=== PATIENT | male | born 1945 | race Caucasian/White ===

== ENCOUNTER → 2016-10-12 | Outpatient (CLI) | payer MEDICARE, OTHER ==
[2016-10-12 15:59] LABS: Blood Urea Nitrogen 25 mg/dL (9-20); Non-African American GFR(MDRD) 57 (>60 ml/min/1.73 sqM)
--- NOTE | 2016-10-12 18:24 | CT ---
EXAMINATION TYPE: CT urogram wo/w con DATE OF EXAM: 10/12/2016 5:43 PM COMPARISON: NONE HISTORY: hematuria CT DLP: 1069.1 mGycm Automated exposure control for dose reduction was used. CONTRAST: Performed with IV Contrast, patient injected with 80 mL of Visipaque 320. FINDINGS: There is mild pleural thickening and linear density at the left lung base consistent with scarring. T here is no pleural effusion. There is a small hiatal hernia. There is no pericardial effusion. The liver spleen pancreas gallbladder appear normal. Bile ducts are not dilated. Noncontrast images s how no renal calculi. There is no hydronephrosis. Kidneys have normal size and contour. There is no s ign of a renal mass. There is normal appearance of the ureters. Bladder distends smoothly. There is n o evidence of a pelvic mass. Prostate is large and measures 5 cm. I see no intestinal wall thickening there are no dilated loops. Appendix appears normal. There is no retroperitoneal adenopathy. There i s no ascites. There is no evidence of a pelvic mass. I see no bony destructive process. IMPRESSION: MILD PULMONARY AND PLEURAL SCARRING AT THE LEFT LUNG BASE. SMALL HIATAL HERNIA. NO ABNORMALITY SEEN O F THE KIDNEYS URETERS AND URINARY BLADDER. ENLARGED PROSTATE. I DO NOT SEE A CAUSE FOR THE HEMATURIA.
== END | disposition home or self-care (01) ==
LOC: RADCTMAIN 15:12
PROVIDERS: ATTEND Internal Medicine
DX: N40.0 Benign prostatic hyperplasia without lower urinary tract symptoms (principal)
CPT/HCPCS: 82565; 84520; 74178; 36415; 74400; Q9967

== ENCOUNTER → 2016-10-26 | Outpatient (CLI) | payer MEDICARE, OTHER ==
[2016-10-19 09:44] VITALS: BMI 25.7
[2016-10-26 14:03] VITALS: BP 144/86; PULSE 62; RESP 16; TEMP 98.5
--- NOTE | 2016-10-27 09:03 | P.CONS ---
History of Present Illness - Reason for Consult Consult date: 10/26/16 - History of Present Illness This is an initial consultation visit for this 70 years old male, with a chronic history of significant low back pain, he reported that he had this pain for several years, the intensity of the pain increased over the last 6 months, denies any initiating event and he reports that the pain, is constant and increases with any activity. Intensity of the pain , intensity of the pain , varies between 4/ 10 increased with activity to 7-8/10, he denies any motor or sensory deficits, he denies any fever or night sweats,, he never tried interventional pain management, he never had any surgery on his back Past Medical History Past Medical History: Blood Disorder, Cancer, GERD/Reflux, Hyperlipidemia, Osteoarthritis (OA), Pulmonary Embolus (PE) Additional Past Medical History / Comment(s): LEIDEN FACTOR 5, HX OF PE'S (2003) , CANCER ON EAR REMOVED. History of Any Multi-Drug Resistant Organisms: None Reported Past Surgical History: Orthopedic Surgery Additional Past Surgical History / Comment(s): LEFT ANKLE WITH HARDWARE(1998), RHINOPLASTY, COLONOSCOPY Past Anesthesia/Blood Transfusion Reactions: No Reported Reaction Past Psychological History: No Psychological Hx Reported Smoking Status: Current every day smoker Past Alcohol Use History: Rare Additional Past Alcohol Use History / Comment(s): SMOKES 1/2 PPD, HAS SMOKED FOR 54 YEARS. Past Drug Use History: None Reported - Past Family History Brother(s) Family Medical History: Cancer Additional Family Medical History / Comment(s): TWIN BROTHER HAD COLON CANCER. Medications and Allergies Home Medications Medication Instructions Recorded Confirmed Type Allopurinol [Zyloprim] 100 mg PO HS 11/25/15 10/26/16 History Atorvastatin [Lipitor] 20 mg PO HS 11/25/15 10/26/16 History Cholecalciferol [Vitamin D3] 1,000 unit PO HS 11/25/15 10/26/16 History Fondaparinux Sodium [Arixtra] 2.5 mg SQ DAILY 11/25/15 10/26/16 History Omeprazole [PriLOSEC] 20 mg PO HS 11/25/15 10/26/16 History Fenofibrate 145 mg PO HS 10/19/16 10/26/16 History Allergies Allergy/AdvReac Type Severity Reaction Status Date / Time warfarin sodium Allergy Severe Unknown Verified 10/26/16 13:46 [From Coumadin] niacin AdvReac Unknown AFFECTED Verified 10/26/16 13:46 LIVER Physical Exam Vitals: Vital Signs Temp Pulse Resp BP 10/26/16 13:49 98.5 F 62 16 144/86 Social history : smoker , NO ETOH , NO Illegal drugs use Review of Systems : 1- Constitutional : no chills , no fever , no night sweats , 2- Ears : no ear discharge , no change in hearing 3-Nose, Mouth ,Throat ; no bleeding gums, no sore throat , no epistaxis , 4-Cardiovascular : Denies chest pain, , no orthopnea , no palpitation ,( history of pulmonary embolism) 5-Respiratory : Denies cough , no dyspnea , no hemoptysis 6-Gastrointestinal :, no change in bowel habits , no coffee- ground emesis . 7-Genitourinary : No hematuria , no discharge , no incontinence, 8-Musculoskeletal : No gait dysfunction , report low back pain , 9- Neurological : no ataxia , no tremor , no sezure , 10-Psychatric , no suicidal ideation no hallucination 11- Endocrine : no cold intolerence , no polyuria , no polydypsia , 12-Hematologic : History of pulmonary embolism(factor V Leiden deficiency) 13-Allergic / immunology : no angioedema , no wheezing ,no allergic rhinitis 14-Integumentary : no brttle nails , no change hair / nails , no foot/leg ulcers . Physical Examinations : 1-Constitutional : Cooperative , not in acute distress . 2-HEENT : nech ; supple , no Lymphadenopathy , no Thyromegaly , :eyes , no icterus, no photophobia . ENT : , normal oropharynx , no Thrush 3- Respiratory : Chest clear to auscultations Bilaterally , no wheezing . 4- Cardiovascular : regular rate and rhythem , S1 , S2 , no S3 , no S4. 5- Gastrointestinal: abdomen soft no tenderness , no organomegally . 6- Genitourinary : Defferred . 7-Integumentary : No cellulitis , no ulcers , normal skin turgor , no cyanotic . 8- neurologic : Cranial nerve II to XII intact , no focal neurological deffecit 9-psychatric : alert , oriented X 3 , appropriate affect , intact judgment and insight . 10-Lymphatic : no Lymphadenopathy. 11- musculoskeltal: normal gait , exams of the cervical spine = motor stregnth in the deltoid and biceps, normal right side , normal Left side exams of the Lumber spine = moter stegnth lower extremities , thigh and legs 5/5 Right side , 5/5 Left side deep tendon reflexes : normal Knee Jerk , normal ankle Jerk positive lumber facet Loading Test Range of motion of the lumbar spine Flexion 30 degrees, extension 10 degrees strait leg raising test negative bilaterally Fabere test negative bilaterally. Results Comments: MRI of the lumbar spine done 08/07/2016= multilevel lumbar facet arthropathy L1-2 /L2-3/L4 5, and L5-S1 disc herniation Assessment and Plan Plan: Assessment and plan = - Chronic low back pain secondary to lumbar herniated disc disease , lumbar spondylosis with facet arthropathy without myelopathy , - diagnoses, prognosis, and treatment options including but not limited to physical therapy, surgical interventions, interventional therapies and medication management including narcotics and adjuvant medication were discussed with the patient and all questions answered to the patient's satisfaction. -procedure= patient will be scheduled to have lumbar epidural steroid injection at L5-S1 levels, and we will do the procedure twice and we evaluate patient's response to the injection, and if he continued to have pain after the epidural steroid injection, and we will consider doing diagnostic medial branch block lumbar area, and later on we can consider doing radiofrequency ablation of the medial branch, Patient has to stop Arixtra 48 hours before the procedure Time with Patient: Greater than 30
== END | disposition home or self-care (01) ==
LOC: PNWHC3 13:28
PROVIDERS: ATTEND Specialist
DX: M51.26 Other intervertebral disc displacement, lumbar region (principal); M47.816 Spondylosis without myelopathy or radiculopathy, lumbar region; M46.96 Unspecified inflammatory spondylopathy, lumbar region; K21.9 Gastro-esophageal reflux disease without esophagitis; E78.5 Hyperlipidemia, unspecified; M19.90 Unspecified osteoarthritis, unspecified site; Z86.711 Personal history of pulmonary embolism; Z79.01 Long term (current) use of anticoagulants; F17.200 Nicotine dependence, unspecified, uncomplicated; Z79.899 Other long term (current) drug therapy; Z88.8 Allergy status to other drugs, medicaments and biological substances; D68.2 Hereditary deficiency of other clotting factors
CPT/HCPCS: 99211

== ENCOUNTER → 2016-11-12 | Day surgery (SDC) | payer MEDICARE, OTHER ==
[~2016-11-12] MED LIST: LIDOCAINE 1% 20 ML VIAL (10MG/ML) FOR IV START INTRADERMA ONE
[2016-11-12 12:03] VITALS: BP 158/83; PULSE 73; RESP 18; TEMP 97.6
[2016-11-12] MEDS: LACTATED RINGERS 1,000 ML IV SCH ×2 (12:03→12:38)
--- NOTE | 2016-11-12 14:20 | P.PN ---
Progress Note - Text Patient seen in preoperative holding area, presents for lumbar epidural steroid injection today. Patient has a long history of pulmonary embolism secondary , and has had multiple emboli and hospital admissions for this problem. Due to his Coumadin allergy, he has been on Arixtra (fondaparinux) for an extended period of time. He was instructed by our staff to be off the Arixtra for 48 hours prior to epidural injection, but today relates a history that his previous hematologists in [place] specifically instructed him that he should never stop his anticoagulation or that he could . He last took the Arixtra at 10 PM (2200) on 11/10/16, and thus he has only been off this anticoagulant for approximately 30 -33 hours. Review of the PAO anticoagulation guidelines demonstrates that current recommendations for fondaparinux should be stopped for 3-4 days (five half-lives ) to reduce risk of hematoma. We will be unable to do this procedure today because of this. The patient noted that he wished to stay off his Arixtra for the epidural injection to be done Wednesday, which was the time for which he was rescheduled. I informed him that, since he uses Arixtra at night, in order to have three full days' worth of recoagulation, he would have to have his last dose night. I also informed him of the risks of staying off anticoagulation, specifically that he could be at increased odds of having another pulmonary embolus, and the patient said that his pain was so severe that he had to have something done, and he said he preferred to take this risk and have the epidural injection performed on Wednesday. He fully understands all relevant risks, benefits, and alternatives to the epidural steroid injection ( including bleeding, infection, nerve damage, incomplete pain relief, and allergies), and he will return for the procedure as scheduled.
== END ==
LOC: ORPAIN 11:21
PROVIDERS: ATTEND Anesthesiology
DX: G89.29 Other chronic pain (principal); M51.26 Other intervertebral disc displacement, lumbar region; M47.816 Spondylosis without myelopathy or radiculopathy, lumbar region; M46.96 Unspecified inflammatory spondylopathy, lumbar region; Z53.8 Procedure and treatment not carried out for other reasons; Z86.711 Personal history of pulmonary embolism; Z79.01 Long term (current) use of anticoagulants; K21.9 Gastro-esophageal reflux disease without esophagitis; E78.5 Hyperlipidemia, unspecified; F17.200 Nicotine dependence, unspecified, uncomplicated; Z79.899 Other long term (current) drug therapy; Z88.8 Allergy status to other drugs, medicaments and biological substances

== ENCOUNTER 2016-11-16 08:00 | Day surgery (SDC) | payer MEDICARE, OTHER ==
[2016-11-13 08:51] VITALS: BMI 25.1
[2016-11-16] MEDS ORDERED: LACTATED RINGERS 1,000 ML IV ONE (08:15)
[2016-11-16 08:36] VITALS: PULSE 59; TEMP 98.3
[2016-11-16] MEDS ORDERED: LIDOCAINE 1% 20 ML VIAL (10MG/ML) FOR IV START INTRADERMA ONE (08:48)
[2016-11-16] MEDS ORDERED: TRIAMCINOLONE ACETONIDE 40 MG/ML 1 ML VIAL ONE (09:49)
[2016-11-16] MEDS ORDERED: MIDAZOLAM 2 MG/2 ML VIAL ONE (09:49)
[2016-11-16] MEDS ORDERED: IOHEXOL 180 MG/ML 1 ML ML ONE (09:49)
[2016-11-16] MEDS ORDERED: fentaNYL (PF) 50 MCG/ML 2 ML AMP ONE (09:49)
--- NOTE | 2016-11-16 10:14 | P.PCN ---
Date of Procedure: 11/16/16 Procedure(s) Performed: PREOPERATIVE DIAGNOSIS: 1- Lumbar Degenerative Disc Diseases 2-Lumbar spondylosis with Facet arthropathy without myelopathy. 3-lumbar herniated disc disease. POSTOPERATIVE DIAGNOSIS: 1-Lumber Degenerative Disc Diseases 2-Lumbar spondylosis with Facet arthropathy without myelopathy. 3-lumbar herniated disc disease. PROCEDURE 1. Lumbar epidural steroid injection under fluoroscopic guidance at the L5-S1 level. 2. Lumbar epidurogram. ANESTHESIA: Local with 1% lidocaine 3 ml and IV sedation with Versed 1 mg , and fentanyle 50 Mcg EBL: Minimal PROCEDURE INDICATION: The patient with low back pain and radiculitis symptoms unresponsive to conservative treatment. Fluoroscopy was used to optimize visualization of the needle placement and to maximize safety. PROCEDURE DESCRIPTION / TECHNIQUE: The patient was seen and identified in the preoperative area. Risks, benefits , complications including but not limited to infections ,bleeding ,allergic reaction to the medications ,nerve damage and not complete pain releife , and alternatives were discussed with the patient. The patient agreed to proceed with the procedure and signed the consent. IV was started, and vital signs were stable. Patient was taken to the OR and time out was completed. The patient was placed in the prone position on procedure table and a pillow was placed under the abdomen to reduce lumbar lordosis. The lumbosacral area was prepped and draped in the usual sterile fashion.ere closely monitored during the procedure. Conscious sedation was used during the procedure to decrease patients anxiety. Vital signs was monitered during the entire procedure. Using anterior-posterior fluoroscopy, the L5-S1 interlaminar space was identified and the skin over this site was marked and then infiltrated with 1% lidocaine subcutaneously. Subsequently, a 20-gauge Tuohy epidural needle was inserted and advanced toward the epidural space using the ``Loss of resistance technique and guided by AP and lateral fluoroscopy. The correct needle position in the epidural space was verified with the injection of 2 mL of the water soluble contrast dye Omnipaque 180 contrast and observing an excellent epidurogram with the epidural spread of the dye, after negative aspiration for blood and CSF and in the absence of paresthesias. Again after negative aspiration, a 6 ml mixture containing 80 mg of Kenalog and 2 ml of preservative free Normal Saline, and 2 ml of preservative free lidocaine 1% solution was injected and a washout of epidurogram was seen. Needle was withdrawn intact, skin was cleansed, and bandages were applied. COMPLICATIONS: None DISPOSITION / PLANS: The patient was placed in a supine position and transferred to the recovery area in a stable condition for observation. There was no evidence of lower extremity motor or sensory deficit after the procedure. Patient was discharged from the recovery room after meeting discharge criteria. Home discharge instructions were given to the patient by the staff. The patient was reexamined prior to discharge. The patient will schedule a follow up in the clinic in 2-4 weeks.
[2016-11-16] MEDS ORDERED: IV FLUID CONTINUATION 1,000 ML IV ONE (10:19)
--- NOTE | 2016-11-16 10:20 | FL ---
Fluoroscopy HISTORY: Pain 2 seconds fluoroscopy time supplied to the referring clinician. 1 intraoperative C-arm images docume nt the procedure. See dictated report from anesthesia.
[2016-11-16 10:24] VITALS: RESP 18
[2016-11-16 10:45] VITALS: BP 110/74
== END 2016-11-16 10:52 | disposition home or self-care (01) ==
LOC: ORPAIN 08:00
PROVIDERS: ATTEND Specialist
DX: M51.36 Other intervertebral disc degeneration, lumbar region (principal); M47.816 Spondylosis without myelopathy or radiculopathy, lumbar region; M46.96 Unspecified inflammatory spondylopathy, lumbar region; M51.26 Other intervertebral disc displacement, lumbar region
CPT/HCPCS: 62323; 99152; J2250; J3301; Q9965; J3010

== ENCOUNTER 2016-12-17 11:27 | Day surgery (SDC) | payer MEDICARE, OTHER ==
[2016-12-16 10:11] VITALS: BMI 24.4
[~2016-12-17 11:27] MED LIST changes: +LACTATED RINGERS 1,000 ML IV SCH; -LIDOCAINE 1% 20 ML VIAL (10MG/ML) FOR IV START INTRADERMA ONE
[2016-12-17 12:26] VITALS: RESP 18; TEMP 97.9
[2016-12-17] MEDS ORDERED: LIDOCAINE 1% 20 ML VIAL (10MG/ML) FOR IV START INTRADERMA ONE (12:31)
[2016-12-17] MEDS ORDERED: IOHEXOL 180 MG/ML 1 ML ML ONE (13:33)
[2016-12-17] MEDS ORDERED: MIDAZOLAM 2 MG/2 ML VIAL ONE (13:33)
[2016-12-17] MEDS ORDERED: TRIAMCINOLONE ACETONIDE 40 MG/ML 1 ML VIAL ONE (13:33)
[2016-12-17] MEDS ORDERED: fentaNYL (PF) 50 MCG/ML 2 ML AMP ONE (13:33)
--- NOTE | 2016-12-17 13:48 | P.PCN ---
Date of Procedure: 12/17/16 Procedure(s) Performed: PREOPERATIVE DIAGNOSIS: 1- Lumbar Degenerative Disc Diseases 2-Lumbar spondylosis with Facet arthropathy without myelopathy 3-lumbar herniated disc disease POSTOPERATIVE DIAGNOSIS: 1-Lumber Degenerative Disc Diseases 2-Lumbar spondylosis with Facet arthropathy without myelopathy. 3-lumbar herniated disc disease PROCEDURE 1. Lumbar epidural steroid injection under fluoroscopic guidance at the L5-S1 level. 2. Lumbar epidurogram. ANESTHESIA: Local with 1% lidocaine 3 ml and IV sedation with Versed 1 mg , and fentanyle 50 Mcg EBL: Minimal PROCEDURE INDICATION: The patient with low back pain and radiculitis symptoms unresponsive to conservative treatment. Fluoroscopy was used to optimize visualization of the needle placement and to maximize safety. PROCEDURE DESCRIPTION / TECHNIQUE: The patient was seen and identified in the preoperative area. Risks, benefits , complications including but not limited to infections ,bleeding ,allergic reaction to the medications ,nerve damage and not complete pain releife , and alternatives were discussed with the patient. The patient agreed to proceed with the procedure and signed the consent. IV was started, and vital signs were stable. Patient was taken to the OR and time out was completed. The patient was placed in the prone position on procedure table and a pillow was placed under the abdomen to reduce lumbar lordosis. The lumbosacral area was prepped and draped in the usual sterile fashion.ere closely monitored during the procedure. Conscious sedation was used during the procedure to decrease patients anxiety. Vital signs was monitered during the entire procedure. Using anterior-posterior fluoroscopy, the L5-S1 interlaminar space was identified and the skin over this site was marked and then infiltrated with 1% lidocaine subcutaneously. Subsequently, a 20-gauge Tuohy epidural needle was inserted and advanced toward the epidural space using the ``Loss of resistance technique and guided by AP and lateral fluoroscopy. The correct needle position in the epidural space was verified with the injection of 2 mL of the water soluble contrast dye Omnipaque 180 contrast and observing an excellent epidurogram with the epidural spread of the dye, after negative aspiration for blood and CSF and in the absence of paresthesias. Again after negative aspiration, a 6 ml mixture containing 80 mg of Kenalog and 2 ml of preservative free Normal Saline, and 2 ml of preservative free lidocaine 1% solution was injected and a washout of epidurogram was seen. Needle was withdrawn intact, skin was cleansed, and bandages were applied. COMPLICATIONS: None DISPOSITION / PLANS: The patient was placed in a supine position and transferred to the recovery area in a stable condition for observation. There was no evidence of lower extremity motor or sensory deficit after the procedure. Patient was discharged from the recovery room after meeting discharge criteria. Home discharge instructions were given to the patient by the staff. The patient was reexamined prior to discharge. The patient will schedule a follow up in the clinic in 2-4 weeks.
[2016-12-17] MEDS ORDERED: IV FLUID CONTINUATION 1,000 ML IV ONE (13:54)
--- NOTE | 2016-12-17 14:17 | FL ---
EXAMINATION TYPE: FL guided pain mgmt statistic DATE OF EXAM: 12/17/2016 1:51 PM HISTORY: Pain LESI, 2sec fl time
[2016-12-17 14:21] VITALS: BP 146/81; PULSE 59
== END 2016-12-17 14:35 | disposition home or self-care (01) ==
LOC: ORPAIN 11:27
PROVIDERS: ATTEND Specialist
DX: M51.16 Intervertebral disc disorders with radiculopathy, lumbar region (principal); M46.96 Unspecified inflammatory spondylopathy, lumbar region; M47.26 Other spondylosis with radiculopathy, lumbar region; M51.26 Other intervertebral disc displacement, lumbar region; Z88.8 Allergy status to other drugs, medicaments and biological substances
CPT/HCPCS: 62323; J2250; J3301; Q9965; J3010

== ENCOUNTER → 2017-05-24 | Outpatient (CLI) | payer MEDICARE, OTHER ==
[2017-05-24 11:17] VITALS: BP 141/74; PULSE 76; RESP 16
--- NOTE | 2017-05-24 11:40 | P.PN ---
Progress Note - Text This is a 71-year-old male with history of right lower back pain. The patient denies any radiation of his pain to the lower extremities at this point however he feels some tingling from his knees down bilaterally for the last 3-4 days as she states. By physical exam he is alert oriented 3 no apparent distress he has some tenderness in the right lower back area and with extension of the back. Neuro exam of the lower extremities showed normal muscle strength and normal and symmetrical deep tendon reflexes. The patient denies any bowel or bladder dysfunction however this pain sometimes wakes him up at night. The patient does not take any medication for his pain. He is on Arixtra due to history of multiple PEs. Given the patient axial lower back pain and mostly on the right side of his lower back I will schedule him to have the diagnostic lumbar medial branch block for the L4 5 and L5-S1 joints. I asked him to hold his Arixtra for only 48 hours. The patient questions were answered to his satisfaction.
== END | disposition home or self-care (01) ==
LOC: PNWHC3 10:57
DX: M54.5 Low back pain (principal)
CPT/HCPCS: 99211

== ENCOUNTER 2017-07-06 08:18 | Day surgery (SDC) | payer MEDICARE, OTHER ==
[2017-07-05 08:55] VITALS: BMI 25.1
[2017-07-06 08:33] VITALS: RESP 16; TEMP 97
[2017-07-06] MEDS ORDERED: LIDOCAINE 1% 20 ML VIAL (10MG/ML) FOR IV START INTRADERMA ONE (08:35)
--- NOTE | 2017-07-06 09:58 | P.PCN ---
Date of Procedure: 07/06/17 Procedure(s) Performed: PREOPERATIVE DIAGNOSIS : 1- Lumbar spondylosis with Facet Arthropathy without myelopathy . 2- Lumber degenerative disc disease POSTOPERATIVE DIAGNOSIS: 1- Lumbar spondylosis with Facet Arthropathy without myelopathy . 2- Lumber degenerative disc disease PROCEDURE: Diagnostic bilateral L4 -5 , and L5-S1 medial branch block under fluoroscopy ANESTHESIA: Local with 1% lidocaine 4 ml ; IV sedation with Versed 2 mg EBL: Minimal COMPLICATION: None. IV FLUIDS: 100 mL of normal saline. PROCEDURE INDICATION: Chronic low back pain secondary to Facet arthropathy unresponsive to conservative treatment. PROCEDURE DESCRIPTION: the patient was seen and identified in the preop holding area , risks and benefits and possible complications of the procedure and alternative were discussed with the patient, and the patient agreed to proceed with the procedure and signed the consent , IV was started and vital signs monitored during the procedure and fluoroscopy was used to maximize the benefit and accuracy of the needle placement, and sedation was given to decrease patient anxiety, patient was taken to the procedure room and placed in prone position vital signs monitored in the back prepped with chlorhexidine X3 then under strict sterile technique using a right oblique fluoroscopy ,the junction of the transverse process and the superior articulating process of the right , L4- 5, and L5-S1 vertebra which corresponding to the fluoroscopy image of the eye of the Walt dog on the block side for the medial branches and subsequently , after local infiltration of skin and subcu tissuies with lidocaine 1% one mL at each level ,then 22-gauge Quincke-type needles , 2 needle was used , each one of them placed at the junction of the base of the transverse process and the superior articular process at the appropriate level, and the needle was advanced until the periosteum contacted, needle placement confirmed with AP oblique and lateral view and after appropriate needle placement confirmed, and after negative aspiration for heme and CSF and there was no paresthesia ,1 mL of Marcaine 0.5% mixed with 20 mg Kenalog , then half mL injected at each level after negative aspiration the needle subsequently removed and the same procedure repeated for the left side at left side at L4- 5 and L5-S1 levels. At the end of the procedure and the needles removed and a bandage applied after the skin was cleaned the cleaning solution patient taken to recovery room in stable condition and monitors in the recovery room for 20-30 minutes and discharged home in stable condition after discharge criteria met and patient will follow up with the pain clinic in 2-4 weeks
[2017-07-06] MEDS ORDERED: IV FLUID CONTINUATION 775 ML IV ONE (10:03)
--- NOTE | 2017-07-06 10:09 | FL ---
EXAMINATION TYPE: FL guided pain mgmt statistic DATE OF EXAM: 07/06/2017 HISTORY: Flouroscopy time 6 seconds of fluoroscopy provided. IMPRESSION: 1. Fluoroscopy time.
[2017-07-06 10:32] VITALS: BP 112/63; PULSE 57
--- NOTE | 2017-07-14 15:34 | CDI ---
Dear Dr. Lawson, In order to properly code and bill for this encounter, we need to know the type of sedation that was used during the procedure. Your procedure note only says "sedation" with no additional information. The Anesthesia Plan on the Procedure Record doesn't have anything checked. Was the anesthesia Moderate Conscious Sedation, or other form? Please respond via an addendum on the encounter. Thanks ! SIGIFREDO Luna
--- NOTE | 2017-07-22 14:35 | P.PN ---
Progress Note - Text Progress Note Date: 07/22/17 This is an addendum to the note done 07/06/2017, the procedure was diagnostic medial branch block lumbar area and patient had Versed 2 mg for the sedation during the procedure ,the patient had moderate sedation.
== END 2017-07-06 10:46 | disposition home or self-care (01) ==
LOC: ORPAIN 08:18
PROVIDERS: ATTEND Specialist
DX: G89.29 Other chronic pain (principal); M43.06 Spondylolysis, lumbar region; M47.816 Spondylosis without myelopathy or radiculopathy, lumbar region; M46.96 Unspecified inflammatory spondylopathy, lumbar region; M51.36 Other intervertebral disc degeneration, lumbar region; K21.9 Gastro-esophageal reflux disease without esophagitis; Z86.718 Personal history of other venous thrombosis and embolism; Z88.8 Allergy status to other drugs, medicaments and biological substances
CPT/HCPCS: 64493; 64494; J2250; J3301; 99152

== ENCOUNTER → 2017-09-13 | Outpatient (CLI) | payer MEDICARE, OTHER ==
[2017-09-13 13:29] VITALS: BP 139/72; PULSE 86; RESP 16; TEMP 98.1
--- NOTE | 2017-09-13 13:47 | P.PN ---
Progress Note - Text Progress Note Date: 09/13/17 Patient returns for followup for chronic back pain with radiation to legs. Patient recently underwent R lumbar RFA, which has provided relief for only 2-3 days' interval. Patient continues on no opioid medications for pain, but has overall done well with procedures. Patient denies adverse drug effects from medications. Today, pt denies new-onset weakness, bowel/bladder incontinence, or any other signs or symptoms of cauda equina syndrome. There are no signs of acute intoxication, and no indications of medication diversion or overuse. In addition to above, 13-point review of systems is also negative for chest pain , shortness of breath, changes in vision, changes in hearing, new onset weakness , abdominal pain, diarrhea, extreme fatigue, malaise, fever, skin changes, homicidal or suicidal ideation, or bowel or bladder incontinence. Vital Signs: Reviewed in EMR Gen: WDWN, AAOx3, NAD HEENT: NCAT, EOMI, hearing grossly normal Pulm: resp unlabored Abd: soft, NT, ND Neck: supple, trachea midline ROM in flexion lumbar spine: reduced ROM in extension lumbar spine: reduced Lumbar paravertebral tenderness: + Facet loading: + bilateral, L > R SI joint tenderness: + L > R Murray's test: neg Straight leg raise: neg Neuro: CN II-XII grossly intact, muscle strength lower extremities PRESERVED Imaging: Reviewed in EMR Assessment: 1. lumbar spondylosis 2. lumbar radiculitis 3. chronic pain syndrome Plan: 1. Explanation: Opioid and psychological risk scores were reviewed. Diagnoses , prognoses, and multiple treatment options including but not limited to physical therapy, interventional therapies, adjuvant medical therapies, narcotic medication therapies, and surgery were discussed with the patient and all questions were answered to the patient's satisfaction. 2. Opioid agreement: no opioids prescribed today 3. Counseling: The patient was counseled extensively on SMOKING CESSATION, BODY MASS INDEX, EXERCISE. Specifically, the patient was instructed regarding the importance of smoking cessation, weight control, and exercise in the context of both chronic pain and overall health. 4. Procedures: LESI series (consider Depo-Medrol as patient did have high percentage of relief when done with Decadron) 5. Consultations: None 6. Investigations: None 7. Medications: none prescribed 8. Disposition: f/u for procedure as scheduled PQRS measures: 1-Patient's medications are documented in the chart. 2-Tobacco use is negative 3-Patient has not had a pneumococcal vaccine. 4-Advanced care planning discussed, patient unable to give. 5-Opioid contract NOT signed with the patient. 6-Pain positive, follow-up visit or procedure scheduled 7-Patient's blood pressure measured and documented, and patient will follow up with the primary care due to hypertension. 8-Patient's weight was measured, and body mass index ABOVE the normal limits, and counseling was done. Patient instructed to follow up with PCP. 9-Patient WAS NOT identified as an unhealthy alcohol user.
== END | disposition home or self-care (01) ==
LOC: PNWHC3 13:09
PROVIDERS: ATTEND Anesthesiology
DX: G89.4 Chronic pain syndrome (principal); M54.9 Dorsalgia, unspecified; M47.26 Other spondylosis with radiculopathy, lumbar region
CPT/HCPCS: 99211

== ENCOUNTER 2017-10-06 06:29 | Day surgery (SDC) | payer MEDICARE, OTHER ==
[2017-09-30 13:39] VITALS: BMI 25.1
[2017-10-06 06:47] VITALS: RESP 18; TEMP 97.5
[2017-10-06] MEDS ORDERED: LACTATED RINGERS 1,000 ML IV ONE (06:49)
[2017-10-06] MEDS ORDERED: LIDOCAINE 1% 20 ML VIAL (10MG/ML) FOR IV START INTRADERMA ONE (06:50)
[2017-10-06] MEDS ORDERED: LACTATED RINGERS 1,000 ML IV SCH (07:15)
[2017-10-06] MEDS ORDERED: SODIUM CHLORIDE 0.9% 1,000 ML IV ONE (07:44)
[2017-10-06] MEDS ORDERED: IV FLUID CONTINUATION 800 ML IV ONE (08:08)
[2017-10-06 08:26] VITALS: BP 123/62; PULSE 56
--- NOTE | 2017-10-06 08:45 | FL ---
EXAMINATION TYPE: FL guided pain mgmt statistic DATE OF EXAM: 10/06/2017 FLUOROSCOPY Fluoroscopy time of 9 seconds was used during lumbar epidural injection. 3 image/s document/s the pr anisa.
--- NOTE | 2017-10-06 08:54 | P.PCN ---
Date of Procedure: 10/06/17 Surgeon: Georges Piña Pathology: none sent Condition: stable Disposition: PACU Description of Procedure: POSTOPERATIVE DIAGNOSIS: 1-Lumbar radiculitis. PROCEDURE 1. Lumbar epidural steroid injection under fluoroscopic guidance at the L4-L5 level. 2. Lumbar epidurogram. ANESTHESIA: Local with 1% lidocaine; IV sedation with Versed/fentanyl. EBL: Minimal PROCEDURE INDICATION: The patient with low back pain and radiculitis symptoms unresponsive to conservative treatment, presents for LESI #1 in series after poor relief with RFA. Fluoroscopy was used to optimize visualization of the needle placement and to maximize safety. Off Arixtra for four (4) days. PROCEDURE DESCRIPTION / TECHNIQUE: The patient was seen and identified in the preoperative area. Risks, benefits, complications, and alternatives were discussed with the patient, including but not limited to bleeding, infection, nerve damage, allergic reactions to medications, and incomplete pain relief. The patient agreed to proceed with the procedure and signed the consent after all questions were answered. IV was started, and vital signs were stable. Patient was taken to the OR and time out was completed to confirm patient position, procedure, laterality of pain, and allergies. The patient was placed in the prone position on procedure table and a pillow was placed under the abdomen to reduce lumbar lordosis. The lumbosacral area was prepped and draped in the usual sterile fashion. Critical pause was taken. Vital signs were closely monitored during the procedure. Conscious sedation was used during the procedure to decrease patients anxiety. Using anterior-posterior fluoroscopy, the L4-L5 interlaminar space was identified and the skin over this site was marked and then infiltrated with 1% lidocaine subcutaneously. Subsequently, a 20-gauge 3.5-inch Tuohy epidural needle was inserted and advanced toward the epidural space using the Loss of resistance technique and guided by AP and lateral fluoroscopy. The correct needle position in the epidural space was verified with the injection of 2 mL of the water soluble contrast dye Omnipaque 300 contrast and observing an excellent epidurogram with the epidural spread of the dye, after negative aspiration for blood and CSF and in the absence of paresthesias. Again after negative aspiration, a 6 ml mixture containing 80 mg of Depo Medrol and 2 ml of preservative free Normal Saline, and 2 ml of preservative free lidocaine 1% solution was injected and a washout of epidurogram was seen. Needle was withdrawn intact, skin was cleansed, and bandages were applied. COMPLICATIONS: None COMMENTS: DISPOSITION / PLANS: The patient was placed in a supine position and transferred to the recovery area in a stable condition for observation. There was no evidence of lower extremity motor or sensory deficit after the procedure. Patient was discharged from the recovery room after meeting discharge criteria. Home discharge instructions were given to the patient by the staff. The patient was reexamined prior to discharge and there were no issues. The patient will schedule a repeat LESI in 2-4 weeks.
== END 2017-10-06 08:47 | disposition home or self-care (01) ==
LOC: ORPAIN 06:29
PROVIDERS: ATTEND Anesthesiology
DX: G89.4 Chronic pain syndrome (principal); M47.26 Other spondylosis with radiculopathy, lumbar region; Z88.8 Allergy status to other drugs, medicaments and biological substances; Z79.01 Long term (current) use of anticoagulants
CPT/HCPCS: 62323; J2250; J1030; Q9965; J3010

== ENCOUNTER → 2017-10-22 | Outpatient (CLI) | payer MEDICARE, OTHER ==
--- NOTE | 2017-10-22 15:57 | US ---
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 EXAM MEASUREMENTS: RIGHT: Peak Systolic Velocity (PSV) cm/sec ----- Right CCA: 73.4 ----- Right ICA: 99.0 ----- Right ECA: 215 ICA/CCA ratio: 1.3 RIGHT: End Diastole cm/sec ----- Right CCA: 20.4 ----- Right ICA: 32.4 ----- Right ECA: 26.7 LEFT: Peak Systolic Velocity (PSV) cm/sec ----- Left CCA: 100 ----- Left ICA: 90 ----- Left ECA: 113 ICA/CCA ratio: 0.9 LEFT: End Diastole cm/sec ----- Left CCA: 29.1 ----- Left ICA: 32.4 ----- Left ECA: 0.0 VERTEBRALS (direction of flow): Right Vertebral: Antegrade Left Vertebral: Antegrade Rhythm: Normal elevated right ECA velocity. Bilateral plaque noted, right greater than left. Grayscale, color Doppler, spectral Doppler imaging performed of the carotid arteries. Mild atheromato us changes are present at the carotid bulbs. IMPRESSION: No hemodynamic significant stenosis of the proximal internal carotid arteries bilaterall y by Doppler criteria, an indirect measurement of carotid stenosis
--- NOTE | 2017-10-22 15:59 | US ---
EXAMINATION TYPE: US kidneys/renal and bladder DATE OF EXAM: 10/22/2017 COMPARISON: NONE CLINICAL HISTORY: 68-year-old male R94.4 ABN KIDNEY FUNCTIONS. Technique: Multiple sonographic images of the kidneys and bladder are obtained. FINDINGS: Right Kidney: 10.4 x 5.3 x 5.9 cm Left Kidney: 11.1 x 5.8 x 5.9 cm No hydronephrosis on either side. Urine distended bladder shows no gross abnormality. Both ureteral jets are visualized. IMPRESSION: No hydronephrosis.
--- NOTE | 2017-10-25 11:21 | ECHOF ---
Referral Reason:I34.0 NONRHEUMATIC MITRAL VALVE MEASUREMENTS -------- HEIGHT: 188.0 cm WEIGHT: 83.9 kg BP: 132/72 RVIDd: 2.3 cm (< 3.3) IVSd: 1.2 cm (0.6 - 1.1) LVIDd: 4.5 cm (3.9 - 5.3) LVPWd: 1.2 cm (0.6 - 1.1) IVSs: 1.3 cm LVIDs: 2.8 cm LVPWs: 1.3 cm LA Diam: 3.1 cm (2.7 - 3.8) LAESV Index (A-L): 28.61 ml/m Ao Diam: 3.1 cm (2.0 - 3.7) AV Cusp: 1.7 cm (1.5 - 2.6) LA Diam: 3.5 cm (2.7 - 3.8) MV EXCURSION: 13.536 mm (> 18.000) MV EF SLOPE: 76 mm/s (70 - 150) EPSS: 0.4 cm MV E Phoenix: 0.51 m/s MV DecT: 237 ms MV A [place]: 0.74 m/s MV E/A Ratio: 0.68 RAP: 5.00 mmHg RVSP: 28.43 mmHg FINDINGS -------- Sinus rhythm. This was a technically good study. The left ventricular size is normal. Left ventricular wall thickness is normal. Overall left vent ricular systolic function is normal with, an EF between 55 - 60 %. The right ventricle is normal in size. Normal LA size by volume 22+/-6 ml/m2. The right atrial size is normal. The aortic valve is trileaflet, and appears structurally normal. No aortic stenosis or regurgitation. Mild mitral regurgitation is present. Mild tricuspid regurgitation present. There is no evidence of pulmonary hypertension. The right v entricular systolic pressure, as measured by Doppler, is 28.43mmHg. There is no pulmonic regurgitation present. The aortic root size is normal. There is no pericardial effusion. CONCLUSIONS -------- 1. The left ventricular size is normal. 2. Left ventricular wall thickness is normal. 3. Overall left ventricular systolic function is normal with, an EF between 55 - 60 %. 4. The aortic valve is trileaflet, and appears structurally normal. No aortic stenosis or regurgitati on. 5. Mild mitral regurgitation is present. 6. Mild tricuspid regurgitation present. 7. There is no evidence of pulmonary hypertension. 8. The right ventricular systolic pressure, as measured by Doppler, is 28.43mmHg. 9. There is no pulmonic regurgitation present. 10. The aortic root size is normal. 11. There is no pericardial effusion. T[employer]ATING PLANT OPERATOR: Corina Zamora RDCS
== END | disposition home or self-care (01) ==
LOC: RADUSWWP 13:37
PROVIDERS: ATTEND Internal Medicine
DX: I65.23 Occlusion and stenosis of bilateral carotid arteries (principal); R94.4 Abnormal results of kidney function studies; I08.1 Rheumatic disorders of both mitral and tricuspid valves
CPT/HCPCS: 76770; 93306; 93880

== ENCOUNTER 2017-11-02 06:29 | Day surgery (SDC) | payer MEDICARE, OTHER ==
[2017-11-01 08:44] VITALS: BMI 25.1
[2017-11-02] MEDS ORDERED: LACTATED RINGERS 1,000 ML IV SCH (07:15)
[2017-11-02 07:20] VITALS: RESP 18; TEMP 97.6
[2017-11-02] MEDS ORDERED: SODIUM CHLORIDE 0.9% 1,000 ML IV ONE (07:27)
[2017-11-02] MEDS ORDERED: LIDOCAINE 1% 20 ML VIAL (10MG/ML) FOR IV START INTRADERMA ONE (07:27)
--- NOTE | 2017-11-02 07:51 | P.PCN ---
Date of Procedure: 11/02/17 Surgeon: Georges Piña Pathology: none sent Condition: stable Disposition: PACU Description of Procedure: POSTOPERATIVE DIAGNOSIS: 1-Lumbar radiculitis. PROCEDURE 1. Lumbar epidural steroid injection under fluoroscopic guidance at the L4-L5 level. 2. Lumbar epidurogram. ANESTHESIA: Local with 1% lidocaine; IV sedation with Versed/fentanyl. EBL: Minimal PROCEDURE INDICATION: The patient with low back pain and radiculitis symptoms unresponsive to conservative treatment, presents for LESI #2 with good relief after LESI #1 since procedure. Fluoroscopy was used to optimize visualization of the needle placement and to maximize safety. Off Arixtra for three (3) days. PROCEDURE DESCRIPTION / TECHNIQUE: The patient was seen and identified in the preoperative area. Risks, benefits, complications, and alternatives were discussed with the patient, including but not limited to bleeding, infection, nerve damage, allergic reactions to medications, and incomplete pain relief. The patient agreed to proceed with the procedure and signed the consent after all questions were answered. IV was started, and vital signs were stable. Patient was taken to the OR and time out was completed to confirm patient position, procedure, laterality of pain, and allergies. The patient was placed in the prone position on procedure table and a pillow was placed under the abdomen to reduce lumbar lordosis. The lumbosacral area was prepped and draped in the usual sterile fashion. Critical pause was taken. Vital signs were closely monitored during the procedure. Conscious sedation was used during the procedure to decrease patients anxiety. Using anterior-posterior fluoroscopy, the L4-L5 interlaminar space was identified and the skin over this site was marked and then infiltrated with 1% lidocaine subcutaneously. Subsequently, a 20-gauge 3.5-inch Tuohy epidural needle was inserted and advanced toward the epidural space using the Loss of resistance technique and guided by AP and lateral fluoroscopy. The correct needle position in the epidural space was verified with the injection of 2 mL of the water soluble contrast dye Omnipaque 300 contrast and observing an excellent epidurogram with the epidural spread of the dye, after negative aspiration for blood and CSF and in the absence of paresthesias. Again after negative aspiration, a 6 ml mixture containing 80 mg of Depo Medrol and 2 ml of preservative free Normal Saline, and 2 ml of preservative free lidocaine 1% solution was injected and a washout of epidurogram was seen. Needle was withdrawn intact, skin was cleansed, and bandages were applied. COMPLICATIONS: None COMMENTS: DISPOSITION / PLANS: The patient was placed in a supine position and transferred to the recovery area in a stable condition for observation. There was no evidence of lower extremity motor or sensory deficit after the procedure. Patient was discharged from the recovery room after meeting discharge criteria. Home discharge instructions were given to the patient by the staff. The patient was reexamined prior to discharge and there were no issues. The patient will schedule a follow up in clinic in approximately 4-6 weeks.
[2017-11-02] MEDS ORDERED: IV FLUID CONTINUATION 1,000 ML IV ONE (07:55)
[2017-11-02 08:11] VITALS: BP 129/80; PULSE 60
--- NOTE | 2017-11-02 10:52 | FL ---
EXAMINATION TYPE: FL guided pain mgmt statistic DATE OF EXAM: 11/02/2017 CLINICAL HISTORY: Lumbar spine pain TECHNIQUE: Fluoroscopy. COMPARISON: None. FINDINGS/IMPRESSION: Fluoroscopic guidance was provided during procedure performed by Dr. Piña. A total of 5 seconds of fluoroscopic time was utilized during the procedure and 3 spot images was acqui red demonstrating localization of the lumbar spine.
== END 2017-11-02 08:30 | disposition home or self-care (01) ==
LOC: ORPAIN 06:29
PROVIDERS: ATTEND Anesthesiology
DX: G89.4 Chronic pain syndrome (principal); M54.16 Radiculopathy, lumbar region; Z79.02 Long term (current) use of antithrombotics/antiplatelets; Z91.048 Other nonmedicinal substance allergy status
CPT/HCPCS: 62323; J2250; J1030; Q9965; J3010

== ENCOUNTER → 2017-11-29 | Outpatient (CLI) | payer MEDICARE, OTHER ==
[2017-11-29 12:48] VITALS: BP 147/91; PULSE 69; RESP 16
--- NOTE | 2017-11-29 13:12 | P.PN ---
Progress Note - Text Progress Note Date: 11/29/17 Patient returns for followup for chronic back pain with radiation to legs. The patient had lumbar epidural steroid injection which has helped his pain significantly. The patient is going to move to [place] next month . Patient continues on no opioid medications for pain, but has overall done well with procedures. Patient denies adverse drug effects from medications. Today, pt denies new-onset weakness, bowel/bladder incontinence, or any other signs or symptoms of cauda equina syndrome. There are no signs of acute intoxication, and no indications of medication diversion or overuse. In addition to above, 13-point review of systems is also negative for chest pain , shortness of breath, changes in vision, changes in hearing, new onset weakness , abdominal pain, diarrhea, extreme fatigue, malaise, fever, skin changes, homicidal or suicidal ideation, or bowel or bladder incontinence. Vital Signs: Reviewed in EMR Gen: WDWN, AAOx3, NAD HEENT: NCAT, EOMI, hearing grossly normal Pulm: resp unlabored Neck: supple, trachea midline ROM in flexion lumbar spine: reduced ROM in extension lumbar spine: reduced Lumbar paravertebral tenderness: + Facet loading: + bilateral, L > R SI joint tenderness: + L > R Murray's test: neg Straight leg raise: neg Mild tenderness in the right paravertebral lumbar area and around the sacroiliac joint on the right side Neuro: CN II-XII grossly intact, muscle strength lower extremities PRESERVED Imaging: Reviewed in EMR Assessment: 1. lumbar spondylosis 2. lumbar radiculitis 3. chronic pain syndrome 4-possible right sacroiliitis Plan: 1. Explanation: Opioid and psychological risk scores were reviewed. Diagnoses , prognoses, and multiple treatment options including but not limited to physical therapy, interventional therapies, adjuvant medical therapies, narcotic medication therapies, and surgery were discussed with the patient and all questions were answered to the patient's satisfaction. 2. Opioid agreement: no opioids prescribed today 3. Counseling: The patient was counseled extensively on SMOKING CESSATION, BODY MASS INDEX, EXERCISE. Specifically, the patient was instructed regarding the importance of smoking cessation, weight control, and exercise in the context of both chronic pain and overall health. 4. Procedures: None for now, however if his pain gets worse then he might need to do right sacroiliac joint steroid injection under fluoroscopic guidance 5. Consultations: None 6. Investigations: None 7. Medications: none prescribed 8. Disposition: f/u as needed PQRS measures: 1-Patient's medications are documented in the chart. 2-Tobacco use is negative 3-Patient has not had a pneumococcal vaccine. 4-Advanced care planning discussed, patient unable to give. 5-Opioid contract NOT signed with the patient. 6-Pain positive, follow-up visit or procedure scheduled 7-Patient's blood pressure measured and documented, and patient will follow up with the primary care due to hypertension. 8-Patient's weight was measured, and body mass index ABOVE the normal limits, and counseling was done. Patient instructed to follow up with PCP. 9-Patient WAS NOT identified as an unhealthy alcohol user.
== END | disposition home or self-care (01) ==
LOC: PNWHC3 12:14
PROVIDERS: ATTEND Anesthesiology
DX: G89.4 Chronic pain syndrome (principal); M47.816 Spondylosis without myelopathy or radiculopathy, lumbar region
CPT/HCPCS: 99211

== ENCOUNTER → 2018-01-10 | Outpatient (CLI) | payer MEDICARE, OTHER ==
--- NOTE | 2018-01-10 11:11 | US ---
EXAMINATION TYPE: US abdomen complete DATE OF EXAM: 01/10/2018 COMPARISON: CT urogram October 12, 2016 CLINICAL HISTORY: R10.13 dyspepsia; GERD, constipation, family history of colon CA EXAM MEASUREMENTS: Liver Length: 16.0 cm Gallbladder Wall: 2.6mm CBD: 0.5 cm Spleen: 8.6 cm Right Kidney: 10.6 x 6.4 x 4.8 cm Left Kidney: 10.7 x 5.9 x 5.1 cm Pancreas: limitedly seen due to overlying bowel gas Liver: coarse appearance Gallbladder: wnl Evidence for sonographic Little's sign: no CBD: wnl Spleen: wnl Right Kidney: No hydronephrosis or masses seen Left Kidney: small cortical cyst mid pole = 0.6 x 0.4 x 0.5cm Upper IVC: wnl Abd Aorta: ectatic appearance distally with intimal thickening noted here and into common iliac stevo bridgett Pancreas is suboptimally seen on images saved secondary to shadowing from overlying bowel gas. There is some ectasia of the distal abdominal aorta but not greater than 3 cm aneurysmal change. Finding co rrelates with CT. 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 Visualized liver is slightly heterogeneous without worrisome mass or ductal dilatation. Gallbladder i s seen without shadowing mobile gallstones. Technologist durham 5 mm simple appearing cyst mid to lower pole level left kidney. Spleen is unremark able. IMPRESSION: No suspicious mass or finding identified to account for patient's symptoms.
== END | disposition home or self-care (01) ==
LOC: RADUSWWP 07:44
PROVIDERS: ATTEND Internal Medicine
DX: R10.13 Epigastric pain (principal)
CPT/HCPCS: 76700